=== PATIENT | female | born 1950 | race American Indian/Alaskan Native ===

== ENCOUNTER 2017-05-25 09:58 | Day surgery (SDC) | payer MEDICARE ==
[~2017-05-25 09:58] MED LIST: ANCEF/STERILE WATER 2 GM/20 ML IV NR; NACL 0.9% 1000 ML 1,000 ML IV SCH; PEPCID IV NR; VERSED IV NR
[2017-05-25] MEDS ORDERED: NACL BACTERIOSTATIC INFILTRATI ONE (10:24)
[2017-05-25] MEDS ORDERED: ZEMURON IV ONE (10:45)
[2017-05-25] MEDS ORDERED: ZOFRAN ONE (10:45)
[2017-05-25] MEDS ORDERED: NEOSTIGMINE ONE (10:45)
[2017-05-25] MEDS ORDERED: DECADRON ONE (10:45)
[2017-05-25] MEDS ORDERED: ROBINUL ONE ×2 (10:45→13:23)
[2017-05-25] MEDS ORDERED: DIPRIVAN 10 MG/ML IV ONE (10:45)
[2017-05-25] MEDS ORDERED: XYLOCAINE MPF 2% ONE (10:45)
[2017-05-25] MEDS ORDERED: SUBLIMAZE ONE (10:45)
[2017-05-25] MEDS ORDERED: DILAUDID IV PRN (10:51)
[2017-05-25] MEDS ORDERED: ZOFRAN IV PRN (10:51)
--- NOTE | 2017-05-25 10:52 | Anesthesia Day of Surgery ---
Anesthesia Day of Surgery - Day of Surgery Patient Examined: Yes Patient is NPO: Yes
--- NOTE | 2017-05-25 10:57 | Anesthesia Consultation ---
Anesthesia Consult and Med Hx Date of service: 05/25/17 - Airway Anesthetic Teeth Evaluation: Good ROM Head & Neck: Adequate Mental/Hyoid Distance: Adequate Mallampati Class: Class II Intubation Access Assessment: Probably Good - Pulmonary Exam CTA: Yes - Cardiac Exam Cardiac Exam: RRR - Pre-Operative Health Status ASA Pre-Surgery Classification: ASA2, ASA3 Proposed Anesthetic Plan: General - Pulmonary Hx Smoking: Yes (1/2 PPD X 40 YRS) Hx Asthma: No Hx Respiratory Symptoms: No Hx Sleep Apnea: No (YASMIN PRE SCREEN HIGH RISK) - Cardiovascular System Hx Hypertension: Yes (X 40 YRS) - Central Nervous System Hx Seizures: No CVA: No - Endocrine Hx Renal Disease: No Hx Cirrhosis: No Hx Insulin Dependent Diabetes: No - Other Systems Hx Cancer: Yes (colon, had surgery, no chemo needed)
[2017-05-25] MEDS ORDERED: MARCAINE-EPI/PF 0.5%-1:200,000 INFILTRATI ONE ×3 (12:15→13:43)
[2017-05-25] MEDS ORDERED: NACL 0.9% 1000 ML 1,000 ML ONE (13:27)
[2017-05-25] MEDS ORDERED: NEO SYNEPHRINE/NS Syringe(OR USE) IV ONE (14:00)
[2017-05-25] MEDS ORDERED: TORADOL ONE (14:10)
[2017-05-25] MEDS ORDERED: PROAIR IH ONE (14:15)
[2017-05-25] MEDS ORDERED: DILAUDID ONE (14:18)
--- NOTE | 2017-05-25 14:25 | Operative Report ---
Operative Report Operative Report: [Date of procedure: 05/25/2017 Pre-operative diagnosis: Incarcerated incisional hernia hernia Post-operative diagnosis: Same Procedure name(s): Laparoscopic incarcerated incisional hernia repair with mesh , extensive lysis of adhesions. TAP Block Surgeon: Aristeo Mobley MD Virtualization Consultant: None Anesthesia: General, 0.25% Marcaine EBL: Minimal Complications: None Instrument Count: Correct Indications: This is a 66 -year-old patient presents with a incisional hernia that is now causing symptoms. The patient was offered the above-named procedures possible treatment modality. The risks and benefits discussed until all questions were answered. The patient was subsequent brought to the OR. Findings: Incarcerated incisional hernia to the right of the midline Procedure: The patient was placed supine on the table. We reviewed the informed consent. After adequate anesthesia. Patient was prepped and draped in the usual sterile fashion. A 5 mm incision was made in the left upper quadrant. Using Optiview technique we placed a 5 mm port at this position. The abdomen was then insufflated to 15 mm mercury. We introduced the camera and examined the abdomen. We began examining the defect. At this time we placed a 10 mm right lower quadrant port under direct vision and after infiltration of local anesthetic. A 5 mm left lower quadrant port was also placed. There was extensive adhesions to the anterior abdominal wall and the hernia contained bowel. Using a combination of sharp dissection and Harmonic scalpel, the adhesions were lysed allowing us access to the incarcerated contents. The contents were gently grasped and reduced, and the attachments within the hernia were lysed. This allowed complete reduction of the hernia. Then infiltrated quarter percent Marcaine in the transversus abdominis plane as a nerve block to allow postoperative pain control. We then decreased the intra- abdominal pressure. We then chose a 4 x 6"" proceed mesh with a central 0 Vicryl transfascial stitch. This was introduced into the abdomen through the 10 mm port. We used a suture passer to center the mesh over the middle of the defect. We then secured the edges of the mesh using a pro-tack device. A double crown technique was used to place the tacks. We had good coverage of the hernia defect. We then evacuated the insufflation. Removed all ports and closed all port sites using a 4-0 Monocryl in a subcuticular fashion. The patient tolerated the procedure well. The patient was awakened, extubated, and transferred to PACU in no apparent distress.]
--- NOTE | 2017-05-25 14:31 | Short Stay Summary ---
Short Stay Documentation Date of service: 05/25/17 - History H&P: obtained from office - Allergies and Medications Current Medications: Allergies neomycin Allergy (Verified 05/19/17 10:14) Rash propoxyphene [From Darvon] Allergy (Verified 05/19/17 10:14) Rash Home Medications Medication Instructions Recorded Confirmed Last Taken Type Folic Acid [Folvite] 1 mg PO QDAY 05/19/17 05/19/17 1 Week Ago History Hydroxyzine HCl 25 mg PO PRN PRN 05/19/17 05/19/17 1 Week Ago History Ibuprofen [Motrin] 800 mg PO Q8HR PRN 05/19/17 05/25/17 05/11/17 History Multivit-Min/FA/Lycopen/Lutein 1 each PO DAILY 05/19/17 05/19/17 1 Week Ago History [Centrum Silver Tablet] Triamter/Hctz 37.5-25 mg 1 tab PO DAILY 05/19/17 05/25/17 05/25/17 07:30 History [Maxzide-25] Vitamin B Complex [Balanced B-50] 1 tab PO DAILY 05/19/17 05/25/17 1 Week Ago History Active Medications Cefazolin Sodium (Ancef/Sterile Water 2 Gm/20 Ml) 2 gm IV PREOP NR Stop: 05/25/17 23:59 Famotidine (Pepcid) 20 mg IV PREOP NR Stop: 05/25/17 23:59 Last Admin: 05/25/17 11:31 Dose: 20 mg Hydromorphone HCl (Dilaudid) 0.5 mg IV Q10MIN PRN PRN Reason: Pain , Severe (7-10) Stop: 05/28/17 10:52 Sodium Chloride (Nacl 0.9% 1000 Ml) 1,000 mls @ 75 mls/hr IV DIRECT FREAY Last Admin: 05/25/17 10:55 Dose: 75 mls/hr Midazolam HCl (Versed) 2 mg IV PREOP NR Stop: 05/25/17 23:59 Last Admin: 05/25/17 11:37 Dose: 2 mg - Brief post op/procedure progress note Date of procedure: 05/25/17 Pre-op diagnosis: incarcerated incisional hernia Post-op diagnosis: same Procedure: Laparoscopic incarcerated incisional hernia repair with mesh, extensive lysis of adhesions, TAP block Anesthesia: GETA, local Findings: As above Surgeon: SHELLEY CALLAWAY Estimated blood loss: minimal Pathology: none Condition: stable - Disposition Condition at discharge: Stable Short Stay Discharge Plan Activity: no restrictions Diet: regular Wound: remove dressing (in 2 days but keep the abdominal binder on unless sleeping) Follow up with: RANJIT ANDERSEN MD [Primary Care Provider] - 7 Days SHELLEY CALLAWAY MD [Staff Physician] - 7 Days Prescriptions: oxyCODONE /ACETAMINOPHEN [Percocet 5/325] 1 tab PO Q6HR PRN #30 tablet PRN Reason: Pain
--- NOTE | 2017-05-25 16:32 | Post Anesthesia Evaluation ---
- Post Anesthesia Evaluation Patient Participated: Yes Airway Patent: Yes Stable Respiratory Function: Yes Nausea/Vomiting: No Temp > 96.8F: Yes Pain Manageable: Yes Adequeate Hydration: Yes Anesthesia Complications: No
[2017-05-25] MEDS ORDERED: PROVENTIL IH ONE ×2 (16:45→17:59)
[2017-05-25] MEDS ORDERED: VERSED ONE (16:50)
[2017-05-25] MEDS ORDERED: PERCOCET 5/325 PO ONE (17:41)
[2017-05-25] MEDS ORDERED: VERSED IV ONE (17:59)
[2017-05-25 19:14] VITALS: BP 160/81
== END 2017-05-25 18:55 | disposition home or self-care (01) ==
LOC: OR 09:58
PROVIDERS: ATTEND Surgery
DX: K43.0 Incisional hernia with obstruction, without gangrene (principal); F17.210 Nicotine dependence, cigarettes, uncomplicated; G47.33 Obstructive sleep apnea (adult) (pediatric); F41.9 Anxiety disorder, unspecified; M19.90 Unspecified osteoarthritis, unspecified site; I10 Essential (primary) hypertension; Z85.038 Personal history of other malignant neoplasm of large intestine; Z90.49 Acquired absence of other specified parts of digestive tract; Z98.890 Other specified postprocedural states
CPT/HCPCS: 36415; 49655; 84132; C1781; J0690; J1100; J1170; J1885; J2250; J2370; J2405; J2704; J2710; J3010; J7030

== ENCOUNTER 2018-03-05 01:29 | Emergency (ER) | payer MEDICARE ==
[2018-03-05] MEDS ORDERED: NORMODYNE IV ONE (02:31)
[2018-03-05 02:42] LABS: Basophils # (Auto) 0.1 K/mm3 (0.0-0.1); Basophils % (Auto) 0.8 % (0.0-1.8); Eosinophils % (Auto) 0.4 % (0.0-4.3); Hematocrit 45.3 % (30.3-42.9); Lymphocytes # (Auto) 2.3 K/mm3 (1.2-5.4); Lymphocytes % (Auto) 19.7 % (13.4-35.0); Mean Corpuscular HGB Conc 33 % (30-34); Mean Corpuscular Hemoglobin 30 pg (28-32); Mean Corpuscular Volume 92 fl (79-97); Monocytes # (Auto) 0.9 K/mm3 (0.0-0.8); Monocytes % (Auto) 7.4 % (0.0-7.3); Platelet Count 264 K/mm3 (140-440); Red Blood Count 4.95 M/mm3 (3.65-5.03); Red Cell Distribution Width 14.5 % (13.2-15.2)
--- NOTE | 2018-03-05 02:48 | Emergency Department Report ---
HPI - General Chief Complaint: Dizziness Time Seen by Provider: 03/05/18 01:57 - HPI HPI: 67-year-old female presents to the emergency department by EMS from home with complaint of very elevated blood pressure, left upper quadrant abdominal pain and some dizziness. The patient says that these are all chronic issues for her that she has been trying to deal with with her primary care physician, Dr. Andersen. The patient also had an episode of nausea and vomiting prior to presentation. At this time she does not feel nauseated as she " vomited everything up earlier." She takes triamterene and hydrochlorothiazide daily for her hypertension and says that she took it this morning. She is also on naproxen for her discomfort and on a PPI. She denies any vision change, slurred speech, chest pain, shortness of breath. She did not take anything and was not given anything for her symptoms prior to presentation this evening. No recent travel or sick contacts at home. ED Past Medical Hx - Past Medical History Previous Medical History?: Yes Hx Hypertension: Yes (X 40 YRS) Hx Deep Vein Thrombosis: Yes (RIGHT LEG CALF ) Hx Renal Disease: No Hx Sickle Cell Disease: No Hx Seizures: No Hx Asthma: No Hx HIV: No - Surgical History Past Surgical History?: Yes Hx Cholecystectomy: Yes Additional Surgical History: abdominal hernia surgery - Social History Smoking Status: Former Smoker Substance Use Type: None - Medications Home Medications: Home Medications Medication Instructions Recorded Confirmed Last Taken Type Folic Acid [Folvite] 1 mg PO QDAY 05/19/17 05/19/17 1 Week Ago History ~05/18/17 Hydroxyzine HCl 25 mg PO PRN PRN 05/19/17 05/19/17 1 Week Ago History ~05/18/17 Ibuprofen [Motrin 800 MG tab] 800 mg PO Q8HR PRN 05/19/17 05/25/17 05/11/17 History Multivit-Min/FA/Lycopen/Lutein 1 each PO DAILY 05/19/17 05/19/17 1 Week Ago History [Centrum Silver Tablet] ~05/18/17 Triamter/Hctz 37.5-25 mg 1 tab PO DAILY 05/19/17 05/25/17 05/25/17 07:30 History [Maxzide-25] Vitamin B Complex [Balanced B-50] 1 tab PO DAILY 05/19/17 05/25/17 1 Week Ago History ~05/18/17 oxyCODONE /ACETAMINOPHEN [Percocet 1 tab PO Q6HR PRN #30 tablet 05/25/17 Unknown Rx 5/325] Amlodipine Besylate [Norvasc] 5 mg PO QDAY #30 tablet 03/05/18 Unknown Rx ED Review of Systems ROS: Stated complaint: DIZZINES,ELEVATED BP Other details as noted in HPI Comment: All other systems reviewed and negative Constitutional: denies: chills, fever Eyes: denies: eye pain, eye discharge, vision change ENT: denies: ear pain, throat pain Respiratory: denies: cough, shortness of breath, wheezing Cardiovascular: denies: chest pain, palpitations Gastrointestinal: abdominal pain, nausea, vomiting Genitourinary: denies: urgency, dysuria, discharge Musculoskeletal: denies: back pain, joint swelling, arthralgia Skin: denies: rash, lesions Neurological: other (dizziness). denies: headache Physical Exam - Physical Exam Vital Signs: Vital Signs 03/05/18 02:21 Temperature 98.1 F Pulse Rate 87 Respiratory 18 Rate Blood Pressure 187/108 [Left] O2 Sat by Pulse 96 Oximetry Physical Exam: GENERAL: The patient is well-developed well-nourished. HENT: Normocephalic. Atraumatic. Patient has moist mucous membranes. EYES: Extraocular motions are intact. Pupils equal reactive to light bilaterally. NECK: Supple. Trachea is midline. CHEST/LUNGS: Clear to auscultation. There is no respiratory distress noted. HEART/CARDIOVASCULAR: Regular. There is no tachycardia. There is no murmur. ABDOMEN: Abdomen is soft. there is some left upper quadrant abdominal tenderness to palpation. No guarding. Patient has normal bowel sounds. There is no abdominal distention. SKIN: There is no rash. There is no edema. There is no diaphoresis. NEURO: The patient is awake, alert, and oriented. The patient is cooperative. The patient has no focal neurologic deficits. The patient has normal speech. MUSCULOSKELETAL: There is no tenderness or deformity. There is no limitation range of motion. There is no evidence of acute injury. ED Course Vital Signs 03/05/18 02:21 Temperature 98.1 F Pulse Rate 87 Respiratory 18 Rate Blood Pressure 187/108 [Left] O2 Sat by Pulse 96 Oximetry ED Medical Decision Making - Lab Data Result diagrams: 03/05/18 02:36 03/05/18 02:36 - Radiology Data Radiology results: report reviewed, image reviewed interpreted by me: Abdominal x-ray shows nonspecific nonobstructive bowel gas PROCEDURE: CT ABDOMEN PELVIS W CON TECHNIQUE: Computerized axial tomography of the abdomen and pelvis was performed after the IV injection of iodinated nonionic contrast. HISTORY: Abd pain COMPARISON: No prior studies are available for comparison. FINDINGS: Visualized lower thorax: No significant abnormality. Liver: Normal size and attenuation. Spleen: Normal size and attenuation. Gallbladder and biliary system: There has been a cholecystectomy. There is mild intra and extrahepatic biliary ductal dilatation. Pancreas: Normal. Adrenals: Normal. Kidneys: Normal. GI tract: There is no bowel obstruction, colitis or enteritis. There are diverticula of the sigmoid and left colon. There is no diverticulitis. There has been bowel surgery. There is no right colon, cecum or appendix.. Lymph nodes and mesentery: Normal. Vasculature: Normal. Bladder: Normal. Reproductive organs: Uterus and ovaries are unremarkable.. Peritoneum: There is no ascites or free air, abscess or adenopathy.. Musculoskeletal structures: No significant abnormality. Other: None. IMPRESSION: There has been prior bowel surgery. There is no acute intra- abdominal abnormality. There are chronic diverticula of the sigmoid and left colon. There is no diverticulitis. There has been an appendectomy. Transcribed By: CO Dictated By: JACOB SILVA MD Electronically Authenticated By: JACOB SILVA MD Signed Date/Time: 03/05/18 0504 - Medical Decision Making Patient presented with complaint of uncontrolled and elevated blood pressure, as well as some chronic left upper quadrant abdominal pain. Her abdomen is soft , nonrigid and nontoxic-appearing but there is some reproducible left upper quadrant tenderness to palpation. Labs were unremarkable. Abdominal x-ray shows nonspecific nonobstructive bowel gas. CT scan of the abdomen and pelvis with IV contrast shows some large intestine sigmoid diverticulosis but otherwise no acute process. Patient was given a dose of labetalol and her blood pressure came down to much more reasonable level. Prior to discharge the blood pressure was about 148/92. We discussed dietary and lifestyle changes to make such as staying away from salt and decreasing her amount of caffeine intake. She also will be started on Norvasc to help with the elevated blood pressure. She has been encouraged to see her primary care physician. However she has also been given a referral for cardiology regarding the blood pressure issues, and a referral for gastroenterology for her chronic abdominal pains. She will return to the ER with any worsening of her symptoms or any acute distress. - Differential Diagnosis gastritis, colitis, cholelithiasis Critical Care Time: No Critical care attestation.: If time is entered above; I have spent that time in minutes in the direct care of this critically ill patient, excluding procedure time. ED Disposition Clinical Impression: Uncontrolled hypertension Abdominal pain Qualifiers: Abdominal location: left upper quadrant Qualified Code(s): R10.12 - Left upper quadrant pain Diverticulosis Qualifiers: Diverticulosis site: diverticulosis of large intestine Diverticulosis bleeding : diverticulosis without bleeding Qualified Code(s): K57.30 - Diverticulosis of large intestine without perforation or abscess without bleeding Disposition: TO HOME OR SELFCARE Is pt being admited?: No Condition: Stable Instructions: Diverticulosis (ED), Diverticulosis Diet (ED), Abdominal Pain (ED ), Hypertension (ED) Additional Instructions: Please follow-up with your primary care physician in the next few days. I have given you a referral for a local cafeteria associate, Dr. Dang, to follow up regarding your hypertension/blood pressure issues. I have also given you a referral for a local neurology technologist, Dr. Gates, to follow up regarding your chronic abdominal pains. I am starting you on a new blood pressure medication called Norvasc/amlodipine. This is taken once per day, usually in the morning. Keep a blood pressure log. Try and stay away from foods that are high in salt and caffeinated products. Return to the emergency Department with any worsening of your symptoms or any acute distress. Prescriptions: Amlodipine Besylate [Norvasc] 5 mg PO QDAY #30 tablet Referrals: RANJIT ANDERSEN MD [Primary Care Provider] - 3-5 Days AKIN GATES MD [Staff Physician] - 3-5 Days MARY DANG MD [Staff Physician] - 3-5 Days Time of Disposition: 05:28
[2018-03-05 02:57] LABS: Albumin 4.6 g/dL (3.9-5); Calcium 9.5 mg/dL (8.4-10.2)
[2018-03-05 04:04] VITALS: BP 157/70
--- NOTE | 2018-03-05 04:30 | XRay Report ---
FINAL REPORT PROCEDURE: XR ABDOMEN 2V TECHNIQUE: Abdominal radiograph, single supine AP view. HISTORY: Abd pain COMPARISON: No prior studies are available for comparison. FINDINGS: Bowel gas pattern:Nonobstructive. Masses or calcifications:None. Bony structures:No significant abnormality. Other:There are surgical clips in the right upper quadrant of the abdomen. There has been ventral hernia repair surgery.. IMPRESSION: No acute abnormality
--- NOTE | 2018-03-05 05:15 | Cat Scan Report ---
FINAL REPORT PROCEDURE: CT ABDOMEN PELVIS W CON TECHNIQUE: Computerized axial tomography of the abdomen and pelvis was performed after the IV injection of iodinated nonionic contrast. HISTORY: Abd pain COMPARISON: No prior studies are available for comparison. FINDINGS: Visualized lower thorax: No significant abnormality. Liver: Normal size and attenuation. Spleen: Normal size and attenuation. Gallbladder and biliary system: There has been a cholecystectomy. There is mild intra and extrahepatic biliary ductal dilatation. Pancreas: Normal. Adrenals: Normal. Kidneys: Normal. GI tract: There is no bowel obstruction, colitis or enteritis. There are diverticula of the sigmoid and left colon. There is no diverticulitis. There has been bowel surgery. There is no right colon, cecum or appendix.. Lymph nodes and mesentery: Normal. Vasculature: Normal. Bladder: Normal. Reproductive organs: Uterus and ovaries are unremarkable.. Peritoneum: There is no ascites or free air, abscess or adenopathy.. Musculoskeletal structures: No significant abnormality. Other: None. IMPRESSION: There has been prior bowel surgery. There is no acute intra-abdominal abnormality. There are chronic diverticula of the sigmoid and left colon. There is no diverticulitis. There has been an appendectomy.
== END 2018-03-05 06:15 | disposition home or self-care (01) ==
LOC: ED 01:29
DX: K57.30 Diverticulosis of large intestine without perforation or abscess without bleeding (principal); I10 Essential (primary) hypertension; Z86.718 Personal history of other venous thrombosis and embolism; Z90.49 Acquired absence of other specified parts of digestive tract; Z87.891 Personal history of nicotine dependence
CPT/HCPCS: 36415; 74019; 74177; 80053; 83690; 85025; 96374; 99285; Q9967

== ENCOUNTER 2019-04-07 09:19 | Outpatient (CLI) | payer MEDICARE ==
--- NOTE | 2019-04-07 12:49 | Magnetic Resonance Report ---
MRI LUMBAR SPINE WITHOUT CONTRAST INDICATION / CLINICAL INFORMATION: M54.16 - Radiculopathy, lumbar region. TECHNIQUE: Multisequence, multiplanar images of the lumbar spine were obtained. COMPARISON: None available. FINDINGS: ALIGNMENT: Normal lumbar lordosis without significant scoliosis. VERTEBRAE:No aggressive appearing bone lesions. Vertebral body hemangioma is seen in the L1 vertebral body. VISUALIZED SPINAL CORD: No significant abnormality. [id number] ANALYSIS: L1-2: There is trace symmetric bulging of the disc and mild bilateral facet DJD without significant c anal or foraminal narrowing. L2-3: Trace symmetric bulging of the disc and mild bilateral facet DJD without significant canal or f oraminal narrowing. L3-4: Moderate symmetric disc bulge and moderate bilateral facet DJD with ligamentum flavum thickenin g resulting in mild central canal stenosis. There is also mild bilateral neural foraminal narrowing. L4-5: There is moderate bilateral facet DJD without significant spinal canal or neural foraminal narr owing. L5-S1: There is moderate bilateral facet DJD without significant spinal canal or neural foraminal zach rowing. PARASPINAL SOFT TISSUES: No significant abnormality. ADDITIONAL FINDINGS: None. IMPRESSION: 1. 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 No focal neural impingement is identified throughout the lumbar spine though. Signer Name: Jasiel Sanchez MD Signed: 04/07/2019 12:45 PM Workstation Name: [id number]
== END 2019-04-07 09:20 | disposition home or self-care (01) ==
LOC: MRI 09:19
PROVIDERS: ATTEND General Practice
DX: M47.896 Other spondylosis, lumbar region (principal); M48.061 Spinal stenosis, lumbar region without neurogenic claudication; M19.90 Unspecified osteoarthritis, unspecified site; F32.9 Major depressive disorder, single episode, unspecified; F41.9 Anxiety disorder, unspecified; Z86.718 Personal history of other venous thrombosis and embolism; Z90.710 Acquired absence of both cervix and uterus; Z90.49 Acquired absence of other specified parts of digestive tract
CPT/HCPCS: 72148

== ENCOUNTER 2020-06-27 11:56 | Emergency (ER) | payer MEDICARE ==
[2020-06-27 12:19] VITALS: BP 151/80
--- NOTE | 2020-06-27 13:02 | Emergency Department Report ---
Blank Doc - Documentation Documentation: 70-year-old female that presents with worsening left intranasal abscess. Stated has been taking Amox with no relief. This initial assessment/diagnostic orders/clinical plan/treatment(s) is/are subject to change based on patient's health status, clinical progression and re-assessment by fellow clinical providers in the ED. Further treatment and workup at subsequent clinical providers discretion. Patient/guardians urged not to elope from the ED as their condition may be serious if not clinically assessed and managed. Initial orders include: 1- Patient sent to [facility] for further evaluation and treatment 2- labs
[2020-06-27 13:30] LABS: Basophils % (Auto) 0.5 % (0.0-1.8); Eosinophils # (Auto) 0.2 K/mm3 (0.0-0.4); Hematocrit 45.5 % (30.3-42.9); Hemoglobin 15.4 gm/dl (10.1-14.3); Lymphocytes # (Auto) 2.7 K/mm3 (1.2-5.4); Mean Corpuscular HGB Conc 34 % (30-34); Mean Corpuscular Volume 92 fl (79-97); Monocytes # (Auto) 0.7 K/mm3 (0.0-0.8); Monocytes % (Auto) 8.9 % (0.0-7.3); Platelet Count 257 K/mm3 (140-440); Red Blood Count 4.94 M/mm3 (3.65-5.03); Red Cell Distribution Width 15.5 % (13.2-15.2)
[2020-06-27 13:46] LABS: Blood Urea Nitrogen 7 mg/dL (7-17); Calcium 9.5 mg/dL (8.4-10.2); Hemolysis Index 15
--- NOTE | 2020-06-27 14:00 | Emergency Department Report ---
ED General Adult HPI - General Chief complaint: Skin/Abscess/Foreign Body Stated complaint: LT NOSTILE SWOLLEN Time Seen by Provider: 06/27/20 12:29 Source: patient Mode of arrival: Ambulatory Limitations: No Limitations - History of Present Illness Initial comments: 70-year-old female presenting with chief complaint of nasal pain, gradual onset 1 week ago. She states that she felt there may be an infection so she went to urgent care where she was prescribed Amoxil and mupirocin ointment however states that it still is painful and is not getting better. Denies any fevers or any systemic illness symptoms. Pain is moderate, no alleviating or exacerbating factors. - Related Data Home Medications Medication Instructions Recorded Confirmed Last Taken Folic Acid [Folvite] 1 mg PO QDAY 05/19/17 05/19/17 1 Week Ago ~05/18/17 Ibuprofen [Motrin 800 MG tab] 800 mg PO Q8HR PRN 05/19/17 05/25/17 05/11/17 Multivit-Min/FA/Lycopen/Lutein 1 each PO DAILY 05/19/17 05/19/17 1 Week Ago [Centrum Silver Tablet] ~05/18/17 Triamter/Hctz 37.5-25 mg 1 tab PO DAILY 05/19/17 05/25/17 05/25/17 07:30 [Maxzide-25] Vitamin B Complex [Balanced B-50] 1 tab PO DAILY 05/19/17 05/25/17 1 Week Ago ~05/18/17 hydrOXYzine HCL [Hydroxyzine HCl] 25 mg PO PRN PRN 05/19/17 05/19/17 1 Week Ago ~05/18/17 Previous Rx's Medication Instructions Recorded Last Taken Type oxyCODONE /ACETAMINOPHEN [Percocet 1 tab PO Q6HR PRN #30 tablet 05/25/17 Unknown Rx 5/325] Amlodipine Besylate [Norvasc] 5 mg PO QDAY #30 tablet 03/05/18 Unknown Rx hydrOXYzine HCL [Atarax] 25 mg PO Q6HR PRN #20 tablet 05/01/20 Unknown Rx Sulfamethoxazole/Trimethoprim 1 each PO BID #20 tablet 06/27/20 Unknown Rx [Bactrim DS TAB] cephALEXin [Keflex] 500 mg PO Q6HR #40 capsule 06/27/20 Unknown Rx Allergies Allergy/AdvReac Type Severity Reaction Status Date / Time neomycin Allergy Rash Verified 05/19/17 10:14 propoxyphene [From Darvon] Allergy Rash Verified 05/19/17 10:14 ED Review of Systems ROS: Stated complaint: LT NOSTILE SWOLLEN Other details as noted in HPI Comment: All other systems reviewed and negative ENT: as per HPI ED Past Medical Hx - Past Medical History Hx Hypertension: Yes Hx Deep Vein Thrombosis: Yes (RIGHT LEG CALF ) Hx Renal Disease: No Hx Sickle Cell Disease: No Hx Arthritis: Yes Hx Seizures: No Hx Asthma: No Hx HIV: No - Surgical History Hx Cholecystectomy: Yes Additional Surgical History: abdominal hernia surgery - Social History Smoking Status: Never Smoker - Medications Home Medications: Home Medications Medication Instructions Recorded Confirmed Last Taken Type Folic Acid [Folvite] 1 mg PO QDAY 05/19/17 05/19/17 1 Week Ago History ~05/18/17 Ibuprofen [Motrin 800 MG tab] 800 mg PO Q8HR PRN 05/19/17 05/25/17 05/11/17 History Multivit-Min/FA/Lycopen/Lutein 1 each PO DAILY 05/19/17 05/19/17 1 Week Ago History [Centrum Silver Tablet] ~05/18/17 Triamter/Hctz 37.5-25 mg 1 tab PO DAILY 05/19/17 05/25/17 05/25/17 07:30 History [Maxzide-25] Vitamin B Complex [Balanced B-50] 1 tab PO DAILY 05/19/17 05/25/17 1 Week Ago History ~05/18/17 hydrOXYzine HCL [Hydroxyzine HCl] 25 mg PO PRN PRN 05/19/17 05/19/17 1 Week Ago History ~05/18/17 oxyCODONE /ACETAMINOPHEN [Percocet 1 tab PO Q6HR PRN #30 tablet 05/25/17 Unknown Rx 5/325] Amlodipine Besylate [Norvasc] 5 mg PO QDAY #30 tablet 03/05/18 Unknown Rx hydrOXYzine HCL [Atarax] 25 mg PO Q6HR PRN #20 tablet 05/01/20 Unknown Rx Sulfamethoxazole/Trimethoprim 1 each PO BID #20 tablet 06/27/20 Unknown Rx [Bactrim DS TAB] cephALEXin [Keflex] 500 mg PO Q6HR #40 capsule 06/27/20 Unknown Rx ED Physical Exam - General Limitations: No Limitations General appearance: alert, in no apparent distress - Head Head exam: Present: atraumatic, normocephalic - Eye Eye exam: Present: normal appearance - ENT ENT exam: Present: mucous membranes moist, other (There is some very mild swelling to the nose with tenderness noted, no fluctuance, no evidence of periorbital cellulitis) - Neck Neck exam: Present: normal inspection - Respiratory Respiratory exam: Present: normal lung sounds bilaterally. Absent: respiratory distress - Cardiovascular Cardiovascular Exam: Present: regular rate, normal rhythm. Absent: systolic murmur, diastolic murmur, rubs, gallop - GI/Abdominal GI/Abdominal exam: Present: soft, normal bowel sounds - Extremities Exam Extremities exam: Present: normal inspection - Back Exam Back exam: Present: normal inspection - Neurological Exam Neurological exam: Present: alert, oriented X3 - Psychiatric Psychiatric exam: Present: normal affect, normal mood - Skin Skin exam: Present: warm, dry, intact, normal color. Absent: rash ED Course Vital Signs 06/27/20 12:16 Temperature 98.3 F Pulse Rate 82 Respiratory 16 Rate Blood Pressure 151/80 O2 Sat by Pulse 92 Oximetry ED Medical Decision Making - Lab Data Result diagrams: 06/27/20 13:05 - Medical Decision Making Patient presenting with a mild cellulitis to the nose, with some mild swelling and tenderness noted. No change with Amoxil, no fluctuant area, no evidence of periorbital or orbital cellulitis. We will place on Bactrim and Keflex and refer to PCP/ENT for follow-up. Return precautions given. Labs ordered in triage and shows a normal white blood cell count. - Differential Diagnosis Abscess, cellulitis, fracture unlikely as no injury Critical care attestation.: If time is entered above; I have spent that time in minutes in the direct care of this critically ill patient, excluding procedure time. ED Disposition Clinical Impression: Nose cellulitis Disposition: TO HOME OR SELFCARE Is pt being admited?: No Condition: Good Instructions: Nasal Abscess Prescriptions: Sulfamethoxazole/Trimethoprim [Bactrim DS TAB] 1 each PO BID #20 tablet cephALEXin [Keflex] 500 mg PO Q6HR #40 capsule Referrals: VASYL LALA MD [Staff Physician] - 3-5 Days Time of Disposition: 14:00
[2020-06-27 14:09] LABS: BUN/Creatinine Ratio 10
== END 2020-06-27 14:06 | disposition home or self-care (01) ==
LOC: ED 11:56
DX: J34.0 Abscess, furuncle and carbuncle of nose (principal); I10 Essential (primary) hypertension; M19.91 Primary osteoarthritis, unspecified site; Z86.718 Personal history of other venous thrombosis and embolism; Z98.890 Other specified postprocedural states; Z79.1 Long term (current) use of non-steroidal anti-inflammatories (NSAID); Z79.899 Other long term (current) drug therapy; Z88.8 Allergy status to other drugs, medicaments and biological substances
CPT/HCPCS: 36415; 80048; 85025

== ENCOUNTER 2022-03-02 09:22 | Emergency (ER) | payer MEDICARE | END 2022-03-02 19:45 | disposition left against medical advice (07) | LOC: ED 09:22 | DX: Z01.812 Encounter for preprocedural laboratory examination (principal); Z53.21 Procedure and treatment not carried out due to patient leaving prior to being seen by health care provider ==